=== PATIENT | male | born 1990 | race Hispanic/Latino ===

== ENCOUNTER 2017-08-22 13:51 | Emergency (ER) | payer OTHER, MEDICAID ==
[2017-08-22 14:24] VITALS: RESP 18; TEMP 98.5; O2SAT 100
[2017-08-22] MEDS ORDERED: Naproxen 550 mg Tab PO STA (16:51)
[2017-08-22] MEDS ORDERED: Naproxen 550 mg Tab PO ONE (16:57)
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
[2017-08-22 18:28] VITALS: BP 137/81; PULSE 99
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
== END 2017-08-22 18:46 | disposition home or self-care (01) ==
LOC: C.ER 13:51
DX: S16.1XXA Strain of muscle, fascia and tendon at neck level, initial encounter (principal); S39.012A Strain of muscle, fascia and tendon of lower back, initial encounter; S93.402A Sprain of unspecified ligament of left ankle, initial encounter; V09.20XA Pedestrian injured in traffic accident involving unspecified motor vehicles, initial encounter